=== PATIENT | female | born 1935 | race Caucasian/White ===

== ENCOUNTER 2024-08-09 16:47 | Inpatient (IN) | payer MEDICARE, BC ==
[~2024-08-09] VITALS: Ht 162.6 cm; Wt 71.3 kg
[2024-08-09] MEDS ORDERED: FAMO20TA8 PO (18:34)
[2024-08-09] MEDS ORDERED: LORA0.5T48 PO (18:34)
[2024-08-09] MEDS ORDERED: L. R1CAP4 PO (18:34)
[2024-08-09] MEDS ORDERED: IMODIUM (18:34)
[2024-08-09] MEDS ORDERED: FOSF3PAC PO (18:34)
[2024-08-09] MEDS ORDERED: PRIM50TA27 PO (18:34)
[2024-08-09] MEDS ORDERED: RABE20TA32 PO (18:34)
[2024-08-09] MEDS ORDERED: HYOS-19 PO (18:34)
[2024-08-09] MEDS ORDERED: GABA300C PO (18:34)
[2024-08-09] MEDS ORDERED: LEVO150T8 PO (18:34)
[2024-08-09] MEDS ORDERED: IBUP-1953 PO (18:34)
[2024-08-09] MEDS ORDERED: SERT100T PO (18:34)
[2024-08-09] MEDS ORDERED: METO5TAB87 PO (18:34)
[2024-08-09] MEDS ORDERED: DIPH1TAB PO (18:34)
[2024-08-09] MEDS ORDERED: WHEA152P PO (18:34)
[2024-08-09] MEDS ORDERED: ESTR0.3T3 PO (18:34)
[2024-08-09] MEDS ORDERED: DENO60DI SQ (18:34)
[2024-08-09] MEDS ORDERED: VITA100T PO (18:34)
[2024-08-09] MEDS ORDERED: MAGN400T40 PO (18:34)
[2024-08-09] MEDS ORDERED: PRED2.5T PO (18:34)
[2024-08-09] MEDS ORDERED: CRAN500T3 PO (18:34)
[2024-08-09] MEDS ORDERED: ROSU5TAB PO (18:34)
[2024-08-09] MEDS ORDERED: METO5TAB2 PO (18:34)
[2024-08-09] MEDS ORDERED: CALC-1321 PO (18:34)
[2024-08-09] MEDS: IV LACTATED RINGERS SOLUTION 1,000 ML IV ONE (18:42)
[2024-08-09 18:52] LABS: BASOPHILS % (AUTO) 0.2 % (0.0-2.0); EOSINOPHILS # (AUTO) 0.2 K/uL (0.0-0.7); EOSINOPHILS % (AUTO) 3.5 % (0.0-7.0); HEMATOCRIT 36.4 % (31.2-41.9); LYMPHOCYTES # (AUTO) 1.2 K/uL (0.8-4.8); LYMPHOCYTES % (AUTO) 26.7 % (20.5-51.5); MEAN CORPUSCULAR HEMOGLOBIN 30.6 uug (24.7-32.8); MEAN CORPUSCULAR HGB CONC 33 g/dL (32.3-35.6); MEAN CORPUSCULAR VOLUME 92.7 fL (75.5-95.3); MONOCYTES # (AUTO) 0.3 K/uL (0.1-1.30); NEUTROPHILS # (AUTO) 2.8 K/uL (1.8-8.9); NEUTROPHILS % (AUTO) 62.6 % (38.5-71.5); PLATELET COUNT (AUTO) 103 K/uL (179-408); RED BLOOD CELL COUNT(AUTO) 3.93 MIL/uL (3.63-4.92); RED CELL DISTRIBUTION WIDTH 14.7 % (12.3-17.7); WHITE BLOOD COUNT (AUTO) 4.5 K/uL (3.8-11.8)
[2024-08-09 18:56] LABS: DIFFERENTIAL COMMENT 1
[2024-08-09 18:59] LABS: CALCIUM 8.7 mg/dL (8.5-10.1); CARBON DIOXIDE 28 mmol/L (21-32); CHLORIDE 108 mmol/L (98-107); CREATININE 0.8 mg/dL (0.6-1.3); GLUCOSE 94 mg/dL (74-106); POTASSIUM 3.6 mmol/L (3.5-5.1); SODIUM SERUM 143 mmol/L (136-145); UREA NITROGEN, BLOOD 10 mg/dL (7-18)
[2024-08-09 19:05] LABS: ALANINE AMINOTRANSFERASE 19 U/L (14-59); ALKALINE PHOSPHATASE 78 U/L (50-136); ASPARTATE AMINOTRANSFERASE 31 U/L (15-37); BILIRUBIN,DIRECT 0.2 mg/dL (0.0-0.2); BILIRUBIN,TOTAL 0.5 mg/dL (0.2-1.0); LIPASE 22 U/L (16-77); TOTAL PROTEIN, SERUM 6.5 g/dL (6.4-8.2)
[2024-08-09] MEDS ORDERED: ONDANSETRON 4 MG/2 ML VIAL IV PRN (22:45)
[2024-08-09] MEDS ORDERED: ACETAMINOPHEN 325 MG TABLET PO PRN (22:45)
[2024-08-09 22:46] LABS: *BILIRUBIN,URIN NEGATIVE (NEGATIVE); *CLARITY,URINE CLEAR (CLEAR); *COLOR,URINE YELLOW (YELLOW); *KETONES,URINE NEGATIVE (NEGATIVE); *PROTEIN,URINE NEGATIVE (NEGATIVE); *UROBILINOGEN,URINE 0.2 E.U./dl (NORMAL); LEUKOCYTE ESTERASE ,URINE 1+ (NEGATIVE); NITRITE, URINE NEGATIVE (NEGATIVE); UGLUCOSE NEGATIVE (NEGATIVE)
[2024-08-09 22:47] LABS: *BLOOD, URINE TRACE (NEGATIVE)
[2024-08-09 23:16] LABS: BACTERIA,URINE FEW /HPF (NONE SEEN); SQUAMOUS EPITHELIAL CELL,UR MODERATE /HPF (NONE SEEN)
[2024-08-10] MEDS: VANCOMYCIN FOR PO/GT/NG USE PO SCH
[2024-08-10] MEDS: GABAPENTIN 300 MG CAPSULE PO SCH (00:07)
[2024-08-10] MEDS: PRIMIDONE 50 MG TABLET PO SCH (00:07)
[2024-08-10] MEDS: LORAZEPAM 0.5 MG TABLET PO PRN (00:13)
[2024-08-10 00:19] VITALS: BP 159/66; TEMP 98; O2SAT 98
[2024-08-10 05:24] VITALS: BP 137/44; TEMP 98.1; O2SAT 94
[2024-08-10] MEDS: PIPERACILLIN SODIUM/TAZOBACTAM 3.375 G in IV DEXTROSE 5% 50 ML IV SCH (06:00)
[2024-08-10] MEDS: PANTOPRAZOLE SODIUM 40 MG TABLET.DR PO SCH (06:42)
[2024-08-10] MEDS: LEVOTHYROXINE SODIUM 150 MCG TABLET PO SCH (06:42)
[2024-08-10 06:51] LABS: BASOPHILS % (AUTO) 0.4 % (0.0-2.0); EOSINOPHILS # (AUTO) 0.1 K/uL (0.0-0.7); EOSINOPHILS % (AUTO) 3.6 % (0.0-7.0); HEMATOCRIT 34.8 % (31.2-41.9); HEMOGLOBIN 11.6 g/dL (10.9-14.3); LYMPHOCYTES % (AUTO) 26.3 % (20.5-51.5); MEAN CORPUSCULAR HEMOGLOBIN 30.6 uug (24.7-32.8); MEAN CORPUSCULAR HGB CONC 33 g/dL (32.3-35.6); MEAN CORPUSCULAR VOLUME 91.8 fL (75.5-95.3); MONOCYTES # (AUTO) 0.3 K/uL (0.1-1.30); MONOCYTES % (AUTO) 6.9 % (0.0-11.0); NEUTROPHILS # (AUTO) 2.4 K/uL (1.8-8.9); NEUTROPHILS % (AUTO) 62.8 % (38.5-71.5); PLATELET COUNT (AUTO) 84 K/uL (179-408); RED BLOOD CELL COUNT(AUTO) 3.79 MIL/uL (3.63-4.92); RED CELL DISTRIBUTION WIDTH 14.5 % (12.3-17.7); WHITE BLOOD COUNT (AUTO) 3.8 K/uL (3.8-11.8)
[2024-08-10 07:06] LABS: DIFFERENTIAL COMMENT 1
[2024-08-10 07:13] LABS: IRON, SERUM 55 ug/dL (50-175)
[2024-08-10 07:40] LABS: ALANINE AMINOTRANSFERASE 20 U/L (14-59); ALBUMIN 2.7 g/dL (3.4-5.0); ALKALINE PHOSPHATASE 71 U/L (50-136); ASPARTATE AMINOTRANSFERASE 26 U/L (15-37); BILIRUBIN,TOTAL 0.5 mg/dL (0.2-1.0); CARBON DIOXIDE 28 mmol/L (21-32); CHLORIDE 108 mmol/L (98-107); CHOLESTEROL 86 mg/dL (<200); CREATININE 0.7 mg/dL (0.6-1.3); GLUCOSE 91 mg/dL (74-106); HDL CHOLESTEROL 40 mg/dL (40-60); MAGNESIUM 1.7 mg/dL (1.8-2.4); PHOSPHOROUS 3.4 mg/dL (2.5-4.9); POTASSIUM 3.6 mmol/L (3.5-5.1); SODIUM SERUM 144 mmol/L (136-145); TOTAL PROTEIN, SERUM 5.9 g/dL (6.4-8.2); TRIGLYCERIDES 75 MG/DL (30-150); UREA NITROGEN, BLOOD 8 mg/dL (7-18)
[2024-08-10] MEDS: SERTRALINE HCL 100 MG TABLET PO SCH (08:56)
[2024-08-10] MEDS: PIPERACILLIN SODIUM/TAZOBACTAM 3.375 G in IV DEXTROSE 5% 100 ML IV SCH (08:58)
[2024-08-10 08:59] LABS: THYROID STIMULATING HORMONE 1.718 mIU/mL (0.358-3.740)
[2024-08-10] MEDS: MAGNESIUM OXIDE 400 MG TABLET PO ONE (12:30)
[2024-08-10] MEDS ORDERED: PIPERACILLIN SODIUM/TAZOBACTAM 3.375 G in IV DEXTROSE 5% 100 ML IV SCH (14:00)
[2024-08-10 14:23] LABS: *OCCULT BLOOD STOOL NEGATIVE (NEGATIVE)
[2024-08-10 15:24] VITALS: BP 136/45; TEMP 97.6; O2SAT 96
[2024-08-10] MEDS: HYDROCODONE/APAP 5-325MG TABLET PO PRN (16:39)
[2024-08-10] MEDS: IV D5 1/2 NS 1000 ML 1,000 ML IV PRN (18:56)
[2024-08-10 19:00] VITALS: BP 143/57; TEMP 98; O2SAT 96
[2024-08-10] MEDS: HYOSCYAMINE SULFATE 0.125 MG TABLET PO PRN (20:38)
[2024-08-11 06:00] VITALS: BP 109/47; TEMP 98.8; O2SAT 96
[2024-08-11 07:46] LABS: BASOPHILS % (AUTO) 0.4 % (0.0-2.0); EOSINOPHILS # (AUTO) 0.1 K/uL (0.0-0.7); EOSINOPHILS % (AUTO) 3.6 % (0.0-7.0); HEMATOCRIT 35.4 % (31.2-41.9); HEMOGLOBIN 11.9 g/dL (10.9-14.3); LYMPHOCYTES # (AUTO) 0.9 K/uL (0.8-4.8); LYMPHOCYTES % (AUTO) 24.8 % (20.5-51.5); MEAN CORPUSCULAR HEMOGLOBIN 30.6 uug (24.7-32.8); MEAN CORPUSCULAR HGB CONC 34 g/dL (32.3-35.6); MEAN CORPUSCULAR VOLUME 91.3 fL (75.5-95.3); MONOCYTES # (AUTO) 0.3 K/uL (0.1-1.30); NEUTROPHILS # (AUTO) 2.4 K/uL (1.8-8.9); NEUTROPHILS % (AUTO) 64.2 % (38.5-71.5); PLATELET COUNT (AUTO) 93 K/uL (179-408); RED BLOOD CELL COUNT(AUTO) 3.87 MIL/uL (3.63-4.92); RED CELL DISTRIBUTION WIDTH 14.7 % (12.3-17.7); WHITE BLOOD COUNT (AUTO) 3.8 K/uL (3.8-11.8)
[2024-08-11 07:52] LABS: DIFFERENTIAL COMMENT 1
[2024-08-11 07:58] LABS: CALCIUM 7.8 mg/dL (8.5-10.1); CARBON DIOXIDE 28 mmol/L (21-32); CHLORIDE 109 mmol/L (98-107); CREATININE 0.9 mg/dL (0.6-1.3); GLUCOSE 121 mg/dL (74-106); PHOSPHOROUS 3.6 mg/dL (2.5-4.9); POTASSIUM 3.3 mmol/L (3.5-5.1); SODIUM SERUM 144 mmol/L (136-145); UREA NITROGEN, BLOOD 6 mg/dL (7-18)
[2024-08-11 11:00] VITALS: BP 133/64; TEMP 97.6; O2SAT 98
[2024-08-11] MEDS: POTASSIUM CHLORIDE 20 MEQ POWDER PACKET PO ONE (12:14)
[2024-08-11] MEDS: GOLYTELY 4000 ML BOTTLE PO ONE (12:50)
[2024-08-11 14:21] LABS: EOSINOPHILS % (MANUAL) 5 % (0-8); LYMPHOCYTES % (MANUAL) 26 % (20-40); MONOCYTES % (MANUAL) 5 % (2-10); NEUTROPHILS % (MANUAL) 64 % (42-75)
[2024-08-11 14:22] LABS: PLATELET ESTIMATE DECRE
[2024-08-11 16:00] VITALS: BP 137/100; TEMP 98.6; O2SAT 97
[2024-08-11 19:52] VITALS: BP 141/55; TEMP 98.5; O2SAT 96
[2024-08-12 04:41] VITALS: BP 125/65; TEMP 97.7; O2SAT 93
[2024-08-12 04:58] VITALS: BP 125/65; TEMP 97.7; O2SAT 93
[2024-08-12 06:54] LABS: BASOPHILS % (AUTO) 0.4 % (0.0-2.0); EOSINOPHILS # (AUTO) 0.2 K/uL (0.0-0.7); EOSINOPHILS % (AUTO) 2.9 % (0.0-7.0); HEMATOCRIT 37.1 % (31.2-41.9); HEMOGLOBIN 12.6 g/dL (10.9-14.3); LYMPHOCYTES # (AUTO) 1.3 K/uL (0.8-4.8); LYMPHOCYTES % (AUTO) 23.8 % (20.5-51.5); MEAN CORPUSCULAR HEMOGLOBIN 30.7 uug (24.7-32.8); MEAN CORPUSCULAR HGB CONC 34 g/dL (32.3-35.6); MEAN CORPUSCULAR VOLUME 90.7 fL (75.5-95.3); MONOCYTES # (AUTO) 0.4 K/uL (0.1-1.30); NEUTROPHILS # (AUTO) 3.6 K/uL (1.8-8.9); NEUTROPHILS % (AUTO) 65.9 % (38.5-71.5); PLATELET COUNT (AUTO) 101 K/uL (179-408); RED CELL DISTRIBUTION WIDTH 14.7 % (12.3-17.7); WHITE BLOOD COUNT (AUTO) 5.5 K/uL (3.8-11.8)
[2024-08-12 06:58] LABS: DIFFERENTIAL COMMENT 1
[2024-08-12 07:18] LABS: CALCIUM 7.6 mg/dL (8.5-10.1); CARBON DIOXIDE 25 mmol/L (21-32); CHLORIDE 109 mmol/L (98-107); CREATININE 0.7 mg/dL (0.6-1.3); GLUCOSE 135 mg/dL (74-106); MAGNESIUM 1.8 mg/dL (1.8-2.4); PHOSPHOROUS 2.5 mg/dL (2.5-4.9); POTASSIUM 3.1 mmol/L (3.5-5.1); SODIUM SERUM 143 mmol/L (136-145); UREA NITROGEN, BLOOD 3 mg/dL (7-18)
[2024-08-12] MEDS: POTASSIUM CHLORIDE 10 MEQ, LIDOCAINE-MPF 1% 1 ML in IV DEXTROSE 5% 100 ML IV SCH (09:00)
[2024-08-12 11:56] VITALS: BP 121/69; TEMP 98; O2SAT 98
[2024-08-12 15:42] VITALS: BP 114/61; TEMP 97.9; O2SAT 97
[2024-08-12] MEDS: MORPHINE SULFATE 2 MG/1 ML DISP.SYRIN IV PRN (16:24)
[2024-08-12 19:58] VITALS: BP 116/61; TEMP 98.6; O2SAT 92
[2024-08-12 20:00] VITALS: BP 116/96; TEMP 98.6; O2SAT 94
[2024-08-13] MEDS ORDERED: PROPOFOL 200 MG/20 ML BOTTLE ONE (05:00)
[2024-08-13 06:00] VITALS: BP 108/57; TEMP 98; O2SAT 93
[2024-08-13 07:09] LABS: BASOPHILS % (AUTO) 0.3 % (0.0-2.0); EOSINOPHILS # (AUTO) 0.1 K/uL (0.0-0.7); EOSINOPHILS % (AUTO) 2.7 % (0.0-7.0); HEMOGLOBIN 13.2 g/dL (10.9-14.3); LYMPHOCYTES # (AUTO) 1.1 K/uL (0.8-4.8); LYMPHOCYTES % (AUTO) 19.6 % (20.5-51.5); MEAN CORPUSCULAR HEMOGLOBIN 30.4 uug (24.7-32.8); MEAN CORPUSCULAR HGB CONC 34 g/dL (32.3-35.6); MEAN CORPUSCULAR VOLUME 90.1 fL (75.5-95.3); MONOCYTES # (AUTO) 0.3 K/uL (0.1-1.30); MONOCYTES % (AUTO) 6.1 % (0.0-11.0); NEUTROPHILS # (AUTO) 3.9 K/uL (1.8-8.9); NEUTROPHILS % (AUTO) 71.3 % (38.5-71.5); PLATELET COUNT (AUTO) 96 K/uL (179-408); RED BLOOD CELL COUNT(AUTO) 4.33 MIL/uL (3.63-4.92); WHITE BLOOD COUNT (AUTO) 5.5 K/uL (3.8-11.8)
[2024-08-13 07:15] LABS: DIFFERENTIAL COMMENT 1
[2024-08-13 07:25] LABS: CALCIUM 7.4 mg/dL (8.5-10.1); CARBON DIOXIDE 23 mmol/L (21-32); CHLORIDE 110 mmol/L (98-107); CREATININE 0.7 mg/dL (0.6-1.3); GLUCOSE 130 mg/dL (74-106); MAGNESIUM 1.8 mg/dL (1.8-2.4); PHOSPHOROUS 2.2 mg/dL (2.5-4.9); POTASSIUM 3.1 mmol/L (3.5-5.1); SODIUM SERUM 142 mmol/L (136-145); UREA NITROGEN, BLOOD 3 mg/dL (7-18)
[2024-08-13 10:20] VITALS: BP 100/55; TEMP 98.4; O2SAT 98
[2024-08-13] MEDS: POTASSIUM CHLORIDE 20 MEQ TAB.PRT.SR PO ONE (11:04)
[2024-08-13] MEDS: NEUTRA PHOS PACKET PO ONE (14:07)
[2024-08-13 14:13] VITALS: BP 108/55; TEMP 98.5; O2SAT 99
[2024-08-13] MEDS: CHOLESTYRAMINE/ASPARTAME (LIGHT) 4 G/PKT PACKET PO SCH (14:34)
[2024-08-13 19:00] VITALS: BP 115/59; TEMP 97.9; O2SAT 94
[2024-08-14] MEDS: TEMAZEPAM 15 MG CAPSULE PO PRN (00:36)
[2024-08-14 06:31] VITALS: BP 106/46; TEMP 98; O2SAT 94
[2024-08-14 06:35] LABS: BASOPHILS % (AUTO) 0.6 % (0.0-2.0); EOSINOPHILS # (AUTO) 0.2 K/uL (0.0-0.7); EOSINOPHILS % (AUTO) 3.7 % (0.0-7.0); LYMPHOCYTES # (AUTO) 1.5 K/uL (0.8-4.8); LYMPHOCYTES % (AUTO) 23.3 % (20.5-51.5); MEAN CORPUSCULAR HEMOGLOBIN 30.5 uug (24.7-32.8); MEAN CORPUSCULAR HGB CONC 33 g/dL (32.3-35.6); MEAN CORPUSCULAR VOLUME 91.7 fL (75.5-95.3); MONOCYTES # (AUTO) 0.4 K/uL (0.1-1.30); MONOCYTES % (AUTO) 6.7 % (0.0-11.0); NEUTROPHILS # (AUTO) 4.4 K/uL (1.8-8.9); NEUTROPHILS % (AUTO) 65.7 % (38.5-71.5); PLATELET COUNT (AUTO) 115 K/uL (179-408); RED BLOOD CELL COUNT(AUTO) 4.26 MIL/uL (3.63-4.92); RED CELL DISTRIBUTION WIDTH 14.9 % (12.3-17.7); WHITE BLOOD COUNT (AUTO) 6.6 K/uL (3.8-11.8)
[2024-08-14 06:45] LABS: DIFFERENTIAL COMMENT 1
[2024-08-14 06:51] LABS: CALCIUM 7.5 mg/dL (8.5-10.1); CARBON DIOXIDE 24 mmol/L (21-32); CHLORIDE 111 mmol/L (98-107); CREATININE 0.8 mg/dL (0.6-1.3); GLUCOSE 152 mg/dL (74-106); MAGNESIUM 1.9 mg/dL (1.8-2.4); PHOSPHOROUS 2.6 mg/dL (2.5-4.9); POTASSIUM 3.5 mmol/L (3.5-5.1); SODIUM SERUM 143 mmol/L (136-145); UREA NITROGEN, BLOOD 4 mg/dL (7-18)
[2024-08-14 11:48] VITALS: BP 109/59; TEMP 97.9; O2SAT 94
[2024-08-14 16:05] VITALS: BP 119/58; TEMP 98.1; O2SAT 95
[2024-08-14 22:12] VITALS: BP 148/61; TEMP 98.5; O2SAT 94
[2024-08-15 06:28] VITALS: BP 118/52; TEMP 97.5; O2SAT 93
[2024-08-15 06:55] LABS: BASOPHILS % (AUTO) 0.3 % (0.0-2.0); EOSINOPHILS # (AUTO) 0.2 K/uL (0.0-0.7); EOSINOPHILS % (AUTO) 2.4 % (0.0-7.0); HEMATOCRIT 38.6 % (31.2-41.9); HEMOGLOBIN 12.7 g/dL (10.9-14.3); LYMPHOCYTES # (AUTO) 1.6 K/uL (0.8-4.8); MEAN CORPUSCULAR HEMOGLOBIN 30.4 uug (24.7-32.8); MEAN CORPUSCULAR HGB CONC 33 g/dL (32.3-35.6); MEAN CORPUSCULAR VOLUME 91.9 fL (75.5-95.3); MONOCYTES # (AUTO) 0.4 K/uL (0.1-1.30); MONOCYTES % (AUTO) 6.2 % (0.0-11.0); NEUTROPHILS # (AUTO) 4.4 K/uL (1.8-8.9); NEUTROPHILS % (AUTO) 67.1 % (38.5-71.5); PLATELET COUNT (AUTO) 89 K/uL (179-408); RED BLOOD CELL COUNT(AUTO) 4.19 MIL/uL (3.63-4.92); RED CELL DISTRIBUTION WIDTH 15.2 % (12.3-17.7); WHITE BLOOD COUNT (AUTO) 6.5 K/uL (3.8-11.8)
[2024-08-15 07:03] LABS: DIFFERENTIAL COMMENT 1
[2024-08-15 07:13] LABS: CARBON DIOXIDE 24 mmol/L (21-32); CHLORIDE 112 mmol/L (98-107); CREATININE 0.7 mg/dL (0.6-1.3); GLUCOSE 101 mg/dL (74-106); PHOSPHOROUS 2.8 mg/dL (2.5-4.9); SODIUM SERUM 144 mmol/L (136-145); UREA NITROGEN, BLOOD 6 mg/dL (7-18)
[2024-08-15 08:00] VITALS: TEMP 98.4
[2024-08-15 11:00] VITALS: TEMP 98.1
[2024-08-15] MEDS: LOPERAMIDE HCL 2 MG CAPSULE PO PRN (11:14)
[2024-08-15] MEDS: RIFAXIMIN 550 MG TABLET PO SCH (15:53)
[2024-08-15] MEDS: METRONIDAZOLE 500 MG/NS 100ML 500 MG in PREMIXED 1 EACH IV SCH (15:56)
[2024-08-15 16:24] VITALS: TEMP 98
[2024-08-15] MEDS: CEFEPIME HCL 2 GM in IV DEXTROSE 5% 100 ML IV SCH (17:16)
[2024-08-15] MEDS: NEOMYCIN SULFATE 500 MG TABLET PO SCH (17:56)
[2024-08-15 19:00] VITALS: BP 119/59; TEMP 97.3; O2SAT 94
[2024-08-16 06:46] VITALS: BP 121/59; TEMP 98.2; O2SAT 93
[2024-08-16 07:21] LABS: BASOPHILS % (AUTO) 0.4 % (0.0-2.0); EOSINOPHILS # (AUTO) 0.2 K/uL (0.0-0.7); EOSINOPHILS % (AUTO) 3.4 % (0.0-7.0); HEMATOCRIT 38.4 % (31.2-41.9); HEMOGLOBIN 12.8 g/dL (10.9-14.3); LYMPHOCYTES % (AUTO) 16.9 % (20.5-51.5); MEAN CORPUSCULAR HEMOGLOBIN 30.5 uug (24.7-32.8); MEAN CORPUSCULAR HGB CONC 33 g/dL (32.3-35.6); MEAN CORPUSCULAR VOLUME 91.3 fL (75.5-95.3); MONOCYTES # (AUTO) 0.3 K/uL (0.1-1.30); MONOCYTES % (AUTO) 5.8 % (0.0-11.0); NEUTROPHILS # (AUTO) 4.2 K/uL (1.8-8.9); NEUTROPHILS % (AUTO) 73.5 % (38.5-71.5); PLATELET COUNT (AUTO) 96 K/uL (179-408); RED CELL DISTRIBUTION WIDTH 15.4 % (12.3-17.7); WHITE BLOOD COUNT (AUTO) 5.8 K/uL (3.8-11.8)
[2024-08-16 07:28] LABS: DIFFERENTIAL COMMENT 1
[2024-08-16 07:36] LABS: CALCIUM 8.1 mg/dL (8.5-10.1); CARBON DIOXIDE 22 mmol/L (21-32); CHLORIDE 111 mmol/L (98-107); CREATININE 0.7 mg/dL (0.6-1.3); GLUCOSE 140 mg/dL (74-106); MAGNESIUM 1.7 mg/dL (1.8-2.4); PHOSPHOROUS 2.5 mg/dL (2.5-4.9); POTASSIUM 3.6 mmol/L (3.5-5.1); SODIUM SERUM 141 mmol/L (136-145); UREA NITROGEN, BLOOD 6 mg/dL (7-18)
[2024-08-16 07:44] LABS: LYMPHOCYTES % (MANUAL) 0 % (20-40); NEUTROPHILS % (MANUAL) 0 % (42-75)
[2024-08-16] MEDS ORDERED: OLANZAPINE 10 MG VIAL IM ONE (08:15)
[2024-08-16] MEDS: MAGNESIUM OXIDE 400 MG TABLET PO ONE (11:12)
[2024-08-16 12:00] VITALS: BP 121/61; TEMP 97.6; O2SAT 96
[2024-08-16 16:14] VITALS: BP 106/46; TEMP 98.2; O2SAT 96
[2024-08-16 19:45] VITALS: BP 110/53; TEMP 98.5; O2SAT 93
[2024-08-17 06:54] LABS: CALCIUM 8.2 mg/dL (8.5-10.1); CARBON DIOXIDE 21 mmol/L (21-32); CHLORIDE 112 mmol/L (98-107); CREATININE 0.7 mg/dL (0.6-1.3); GLUCOSE 136 mg/dL (74-106); MAGNESIUM 1.8 mg/dL (1.8-2.4); POTASSIUM 3.9 mmol/L (3.5-5.1); SODIUM SERUM 142 mmol/L (136-145); UREA NITROGEN, BLOOD 7 mg/dL (7-18)
[2024-08-17] MEDS ORDERED: CHOL4PAC6 PO (10:48)
[2024-08-17] MEDS ORDERED: RIFA550T PO (10:48)
[2024-08-17 11:34] VITALS: BP 115/58; TEMP 98; O2SAT 92
[2024-08-17 12:51] LABS: ALBUMIN 2.3 g/dL (3.4-5.0); BILIRUBIN,DIRECT 0.2 mg/dL (0.0-0.2); BILIRUBIN,TOTAL 0.3 mg/dL (0.2-1.0); TOTAL PROTEIN, SERUM 5.9 g/dL (6.4-8.2)
[2024-08-17 15:10] LABS: ANTI-MPO ANTIBODIES <0.2 units (0.0-0.9); ANTI-PR3 ANTIBODIES <0.2 units (0.0-0.9)
[2024-08-17 20:07] LABS: *ANCA ATYPICAL p-ANCA <1:20 titer (Neg:<1:20); *ANCA CYTOPLASMIC (C-ANCA) <1:20 titer (Neg:<1:20); *ANCA PERINUCLEAR (P-ANCA) <1:20 titer (Neg:<1:20)
== END 2024-08-17 15:45 | DRG 394 ==
LOC: ER 16:50 → MEDSURG3 22:27
PROVIDERS: ADMIT Internal Medicine; ATTEND Nurse Practitioner Acute Care
PROC: 05HB33Z Insertion of Infusion Device into Right Basilic Vein, Percutaneous Approach (ICD-10-PCS; 2024-08-10)
PROC: 0DBE8ZX Excision of Large Intestine, Via Natural or Artificial Opening Endoscopic, Diagnostic (ICD-10-PCS; principal; 2024-08-13 05:00)
DX: K63.8219 Small intestinal bacterial overgrowth, unspecified (principal); B15.9 Hepatitis A without hepatic coma; I85.10 Secondary esophageal varices without bleeding; K76.6 Portal hypertension; I50.32 Chronic diastolic (congestive) heart failure; G62.9 Polyneuropathy, unspecified; G47.30 Sleep apnea, unspecified; E86.9 Volume depletion, unspecified; Z86.19 Personal history of other infectious and parasitic diseases; K57.90 Diverticulosis of intestine, part unspecified, without perforation or abscess without bleeding; D69.6 Thrombocytopenia, unspecified; E03.9 Hypothyroidism, unspecified; Z79.890 Hormone replacement therapy; I08.1 Rheumatic disorders of both mitral and tricuspid valves; M79.7 Fibromyalgia; Z87.440 Personal history of urinary (tract) infections; I11.0 Hypertensive heart disease with heart failure; K74.60 Unspecified cirrhosis of liver; R62.7 Adult failure to thrive; Z87.01 Personal history of pneumonia (recurrent); I25.10 Atherosclerotic heart disease of native coronary artery without angina pectoris; E78.5 Hyperlipidemia, unspecified; E83.42 Hypomagnesemia; Z95.810 Presence of automatic (implantable) cardiac defibrillator; K76.0 Fatty (change of) liver, not elsewhere classified; Z90.49 Acquired absence of other specified parts of digestive tract; K58.9 Irritable bowel syndrome, unspecified; Z79.899 Other long term (current) drug therapy; R16.1 Splenomegaly, not elsewhere classified; K62.89 Other specified diseases of anus and rectum
CPT/HCPCS: 36415; 71045; 83520; 83550; 83690; 83735; 84100; 84443; 85025; 85730; 86256; 87086; 87177; 89055; A4606; A4663; C1758; G0378; J0692; J2003; J2270; J2543; J3370; J3480; J3490; J7070; J7120; J8499